=== PATIENT | male | born 1950 | race Caucasian/White ===

== ENCOUNTER 2017-06-04 20:51 | Emergency (ER) | payer MEDICARE, OTHER ==
[2017-06-04 21:23] VITALS: BP 134/82
--- NOTE | 2017-06-04 21:54 | RADIOLOGY REPORT (SQ) ---
EXAM DESCRIPTION: HAND LEFT 3 VIEWS COMPLETED DATE/TIME: 06/04/2017 9:43 pm REASON FOR STUDY: laceration by glass COMPARISON: None. EXAM PARAMETERS: NUMBER OF VIEWS: Three views. TECHNIQUE: AP, lateral and oblique radiographic images acquired of the left hand. LIMITATIONS: None. FINDINGS: MINERALIZATION: Normal. BONES: No acute fracture or dislocation. No worrisome bone lesions. JOINTS: No effusions. SOFT TISSUES: No soft tissue swelling. No foreign body. OTHER: No other significant finding. IMPRESSION: NEGATIVE STUDY OF THE LEFT HAND. NO RADIOGRAPHIC EVIDENCE OF ACUTE INJURY. TECHNICAL DOCUMENTATION: JOB ID: [id number] [employer]- All Rights Reserved
[2017-06-04] MEDS ORDERED: LIDOCAINE 1% INJ-PF (10 MG/ML) 30 ML SDV INJ ONE (22:04)
--- NOTE | 2017-06-04 22:06 | ER Document Report ---
HPI - HPI Pain Level: 4 Notes: Patient is a 67-year-old male who presents the ED with a laceration to his left anterior hand status post fall prior to arrival. Patient states that he was carrying a thick bar glass when he stumbled and fell on top of the glass cutting his hand. Patient does not believe that there is any shards of glass in his hand. Patient did have his hand dressed by Dr. Huggins at the event and was told to come to the ED for sutures. Patient states that he does take blood thinners daily. Patient is otherwise feeling well without any numbness or tingling. Patient states that he is still able to move his fingers without any difficulties. Denies any headache, fever, head injury, neck pain, URI, sore throat, chest pain, palpitations, syncope, cough, shortness of breath, wheeze, dyspnea, abdominal pain, nausea/vomiting/diarrhea, urinary retention, dysuria, hematuria, numbness/tingling, muscle paralysis/weakness, or rash. - ROS Notes: REVIEW OF SYSTEMS: CONSTITUTIONAL : Denies fever, chills, or sweats. Denies recent illness. EENT: Denies eye, ear, throat, or mouth pain or symptoms. Denies nasal or sinus congestion or discharge. Denies throat, tongue, or mouth swelling or difficulty swallowing. CARDIOVASCULAR: Denies chest pain. Denies palpitations or racing or irregular heart beat. Denies ankle edema. RESPIRATORY: Denies cough, cold, or chest congestion. Denies shortness of breath, difficulty breathing, or wheezing. GASTROINTESTINAL: Denies abdominal pain or distention. Denies nausea, vomiting , or diarrhea. GENITOURINARY: Denies difficulty urinating, painful urination, burning, frequency, blood in urine, or discharge. MUSCULOSKELETAL: Denies back or neck pain or stiffness. Denies joint pain or swelling. SKIN: see hpi NEUROLOGICAL: Denies confusion or altered mental status. Denies passing out or loss of consciousness. Denies dizziness or lightheadedness. Denies headache. Denies weakness or paralysis or loss of use of either side. Denies problems with gait or speech. Denies sensory loss, numbness, or tingling. ALL OTHER SYSTEMS REVIEWED AND NEGATIVE. Dictation was performed using [employer] voice recognition software Past Medical History - Social History Smoking Status: Never Smoker Family History: Reviewed & Not Pertinent Vertical Provider Document - CONSTITUTIONAL Agree With Documented VS: Yes Notes: PHYSICAL EXAMINATION: GENERAL: Well-appearing, well-nourished and in no acute distress. LUNGS: Breath sounds clear to auscultation bilaterally and equal. No wheezes rales or rhonchi. HEART: Regular rate and rhythm without murmurs, rubs, gallops. Musculoskeletal: Left hand/fingers: FROM to passive/active. Strength 5+/5. N/ V intact distal Extremities: No cyanosis, clubbing, or edema b/l. Peripheral pulses 2+. Capillary refill less than 3 seconds. NEUROLOGICAL: Normal speech, normal gait. Normal sensory, motor exams PSYCH: Normal mood, normal affect. SKIN: 4cm linear laceration to the left anterior palm on the lateral side. - INFECTION CONTROL TRAVEL OUTSIDE OF THE [place] IN LAST 30 DAYS: No - RESPIRATORY O2 Sat by Pulse Oximetry: 99 Course - Re-evaluation Re-evalutation: 06/04/17 22:53 Patient is an afebrile, well-hydrated, 67-year-old male who presents the ED with a 4 cm laceration to the left anterior hand. Vitals are stable. PE is otherwise unremarkable for any neurovascular compromise, obvious tendon/ ligament rupture, obvious fracture or dislocation, or large foreign body. X- ray was unremarkable for any acute pathology. Patient is able to put his fingers through full range of motion with strength intact. Wound was thoroughly soaked for 30 minutes, cleansed, irrigated as well. Wound was thoroughly investigated for any foreign body with none appreciated. Wound edges were approximated appropriately utilizing 3 vertical mattress sutures, and 4 simple interrupted sutures. Patient tolerated procedure well without any complications. I will send him home with a prescription for Keflex to take twice a day for 1 week. Tetanus is up-to-date. Wound dressing was placed and wound instructions were reviewed. Recheck with the PCM in 2-3 days for a wound check. Sutures only taken out about 10-12 days. Return to the ED with any worsening/concerning symptoms otherwise as reviewed in discharge. Patient and are in agreement. - Vital Signs Vital signs: Temp Pulse Resp BP Pulse Ox 98.3 F 85 16 134/82 H 99 06/04/17 21:21 06/04/17 21:21 06/04/17 21:21 06/04/17 21:21 06/04/17 21:21 Procedures - Laceration/Wound Repair Left Hand Time completed: 22:45 Wound length (cm): 4 Wound's Depth, Shape: Superficial, Linear. No: Into muscle, Irregular, Flap, Stellate, Nail-avulsed, Contused tissue, Other Laceration pre-procedure: Sterile PPE donned, Sterile drapes applied, Other - Chlorhexidine Anesthetic type: 1% Lidocaine Volume Anesthetic (mLs): 8 Wound explored: Clean, No foreign body removed Irrigated w/ Saline (mLs): 90 Wound Debrided: Minimal Wound Repaired With: Sutures Suture Size/Type: 4:0, Nylon Number of Sutures: 7 Layer Closure?: No Post-procedure wound care: Sterile dressing applied Post-procedure NV exam normal: Yes Complications: No Discharge - Discharge Clinical Impression: Hand laceration Qualifiers: Encounter type: initial encounter Foreign body presence: without foreign body Laterality: left Qualified Code(s): S61.412A - Laceration without foreign body of left hand, initial encounter Condition: Stable Disposition: HOME, SELF-CARE Instructions: Antibiotic Ointment Protection ([facility]), Laceration Care ([facility]), Prophylactic Antibiotic ([facility]), Soap Cleansing ([facility]) Additional Instructions: Do not shower or bathe for 24 hours. After 24 hours you may shower but no submersion of the wound under water. Keep the original dressing on the wound for 24 hours unless the drainage soaks through. Change the dressing daily thereafter and keep the knots of the suture material clean from any dried discharge. You may leave the wound open to the air once there is no more discharge. Return to the ED and/or your PCM in 2-3 days for a recheck. Monitor for any signs of worsening pain or redness, purulent drainage, streaks, and/or fever. Return to the ED if noticing any of the above symptoms or as needed. Take medications as directed. Your sutures will need to be removed in 10-12 days. Prescriptions: Cephalexin Monohydrate [Keflex 500 mg Capsule] 500 mg PO BID #14 capsule Forms: Elevated Blood Pressure Referrals: SEBASTIEN GILLIAM MD [Primary Care Provider] - Follow up in 3-5 days [facility] [Provider Group] - Follow up as needed
== END 2017-06-04 23:00 | disposition home or self-care (01) ==
LOC: ER 20:51
PROC: 0HQGXZZ Repair Left Hand Skin, External Approach (ICD-10-PCS; principal; 2017-06-04)
DX: S61.412A Laceration without foreign body of left hand, initial encounter (principal); W01.110A Fall on same level from slipping, tripping and stumbling with subsequent striking against sharp glass, initial encounter
CPT/HCPCS: 99283; 73130; 12002; J3490

== ENCOUNTER 2019-12-21 16:53 | Emergency (ER) | payer MEDICARE, OTHER ==
--- NOTE | 2019-12-21 17:13 | ER Document Report ---
ED Medical Screen (RME) - General Mode of Arrival: Wheelchair TRAVEL OUTSIDE OF THE [place] IN LAST 30 DAYS: No - General Chief Complaint: Laceration Stated Complaint: LACERATION/RIGHT PALACIOS Time Seen by Provider: 12/21/19 17:01 Primary Care Provider: SEBASTIEN GILLIAM MD [Primary Care Provider] - Follow up as needed Notes: HPI; 69-year old male presents to the emergency room with a laceration to his right palacios. Patient states he was closing his truck door when the metal along the edge of the door cut his right palacios. Bleeding was persistent wound was cl eansed and dressed by . Tetanus is up-to-date. PE: Alert and oriented x3, right palacios with a 3 x 4 cm skin tear. Bleeding is persistent. I have greeted and performed a rapid initial assessment of this patient. A comprehensive ED assessment and evaluation of the patient, analysis of test results and completion of the medical decision making process will be conducted by additional ED providers. I have specifically instructed the patient or family members with the patient to immediately return to any nursing staff should anything change in the patient's condition or with their chief complaint. (NAVEEN ERVIN) - Related Data Allergies/Adverse Reactions: No Known Allergies Allergy (Verified 06/04/17 22:15) Past Medical History Renal/ Medical History: Denies: Hx Peritoneal Dialysis Physical Exam - Vital signs Vitals: Temp 98.5 F 12/21/19 17:21 Course - Vital Signs Vital signs: Temp Pulse Resp BP Pulse Ox 98.5 F 12/21/19 17:21 Doctor's Discharge - Discharge Referrals: SEBASTIEN GILLIAM MD [Primary Care Provider] - Follow up as needed
--- NOTE | 2019-12-21 18:13 | ER Document Report ---
ED General - General Chief Complaint: Laceration Stated Complaint: LACERATION/RIGHT RAY Time Seen by Provider: 12/21/19 17:01 Primary Care Provider: SEBASTIEN GILLIAM MD [Primary Care Provider] - Follow up as needed Mode of Arrival: Wheelchair Notes: triage notes 12/21/19 17:22 - ED Nursing Note by ANNA MCINTOSHCYNTHIA Cid Num: [id number] : 1950 Patient Age: 69 Patient was shutting a truck door and struck himself in the R ray with the corner of the door. Patient reports significant bleeding from injury at his home. Bleeding is under control upon arrival. States that he is on Pradaxa. Dressing removed, patient has skin tear to area with oozing blood. New dressing applied. PA notes HPI; 69-year old male presents to the emergency room with a laceration to his right ray. Patient states he was closing his truck door when the metal along the edge of the door cut his right ray. Bleeding was persistent wound was cleansed and dressed by . Tetanus is up-to-date. PE: Alert and oriented x3, right ray with a 3 x 4 cm skin tear. Bleeding is persistent. 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 He reports he tore his right ray on the passenger side door in his pickup truck. He reports is the fourth time he is done this to the same area. His stopped the bleeding with some compression bandage prior to her arrival. Upon arrival patient had 4 x 4's and Coban applied. Patient has stasis dermatitis right greater than left lower legs. TRAVEL OUTSIDE OF THE [place] IN LAST 30 DAYS: No - Related Data Allergies/Adverse Reactions: No Known Allergies Allergy (Verified 06/04/17 22:15) Home Medications: pradaxa Past Medical History - General Information source: Patient - Social History Smoking Status: Never Smoker Cigarette use (# per day): No Chew tobacco use (# tins/day): No Smoking Education Provided: No Frequency of alcohol use: None Drug Abuse: None Lives with: Family Family History: Reviewed & Not Pertinent Patient has homicidal ideation: No Renal/ Medical History: Denies: Hx Peritoneal Dialysis Review of Systems - Review of Systems Constitutional: No symptoms reported EENT: No symptoms reported Cardiovascular: No symptoms reported Respiratory: No symptoms reported Gastrointestinal: No symptoms reported Genitourinary: No symptoms reported Male Genitourinary: No symptoms reported Musculoskeletal: No symptoms reported Skin: See HPI, Other - Right ray V-shaped skin avulsion approximately 10 cm in length Hematologic/Lymphatic: No symptoms reported Neurological/Psychological: No symptoms reported Physical Exam - Vital signs Vitals: Temp 98.5 F 12/21/19 17:21 Interpretation: Normal - General General appearance: Alert - HEENT Head: Normocephalic, Atraumatic Eyes: Normal Pupils: PERRL Pharynx: Normal Neck: Normal - Respiratory Respiratory status: No respiratory distress Chest status: Nontender Breath sounds: Normal Chest palpation: Normal - Cardiovascular Rhythm: Regular Heart sounds: Normal auscultation Murmur: No - Abdominal Inspection: Normal Distension: No distension Bowel sounds: Normal Tenderness: Nontender Organomegaly: No organomegaly - Rectal Hemorrhoids: Other - deferred - Genitourinary Tenderness: Other - deferred - Back Back: Normal - Extremities General upper extremity: Normal inspection General lower extremity: Normal inspection - Neurological Neuro grossly intact: Yes Cognition: Normal Orientation: AAOx4 Katelynn Coma Scale Eye Opening: Spontaneous Katelynn Coma Scale Verbal: Oriented Katelynn Coma Scale Motor: Obeys Commands Katelynn Coma Scale Total: 15 Speech: Normal Motor strength normal: LUE, RUE, LLE, RLE Sensory: Normal - Psychological Associated symptoms: Normal affect - Skin Skin Temperature: Warm Skin Moisture: Dry Skin irregularity: other - As per HPI right ray proximal with a 10 cm V-shaped skin avulsion Course - Vital Signs Vital signs: Temp Pulse Resp BP Pulse Ox 98.4 F 86 16 138/85 H 97 12/21/19 19:41 12/21/19 19:41 12/21/19 19:41 12/21/19 19:41 12/21/19 19:41 Procedures - Laceration/Wound Repair Right Leg Time completed: 18:56 Wound length (cm): 10 Wound's Depth, Shape: Linear Laceration pre-procedure: Shur-Clens applied Anesthetic type: Other - none Volume Anesthetic (mLs): 0 Wound explored: Clean Irrigated w/ Saline (mLs): 15 Wound Debrided: Minimal Wound Repaired With: Steri-strips, Dermabond Critical Care Note - Critical Care Note Total time excluding time spent on procedures (mins): 60 Discharge - Discharge Clinical Impression: Avulsion of skin of lower leg Qualifiers: Encounter type: initial encounter Laterality: right Qualified Code(s): S81.801A - Unspecified open wound, right lower leg, initial encounter Condition: Good Disposition: HOME, SELF-CARE Additional Instructions: Thank you for being up-to-date for your tetanus shot immunization also take Keflex for possible infection. Keep wound clean and dry for at least 1 week the Steri-Strips should self remove try not to remove them yourself. See personal doctor and return to ER if symptoms worsen or bleeding or infection occur. Prescriptions: Cephalexin Monohydrate [Keflex 500 mg Capsule] 500 mg PO BID 10 Days #20 capsule Cephalexin Monohydrate [Keflex 500 mg Capsule] 500 mg PO BID 5 Days #20 capsule Referrals: SEBASTIEN GILLIAM MD [Primary Care Provider] - Follow up as needed
[2019-12-21 19:43] VITALS: BP 138/85
== END 2019-12-21 19:43 | disposition home or self-care (01) ==
LOC: ER 16:53
DX: S81.811A Laceration without foreign body, right lower leg, initial encounter (principal); W20.8XXA Other cause of strike by thrown, projected or falling object, initial encounter; Y93.89 Activity, other specified; Y92.009 Unspecified place in unspecified non-institutional (private) residence as the place of occurrence of the external cause; I87.2 Venous insufficiency (chronic) (peripheral); Z79.01 Long term (current) use of anticoagulants
CPT/HCPCS: 99284